=== PATIENT | male | born 1950 | race Caucasian/White ===

== ENCOUNTER → 2019-02-12 | Day surgery (SDC) | payer BC ==
[2019-02-08 13:41] LABS: BASOPHILS # (AUTO) 0.1 (0.0-0.1); BASOPHILS % 0.8 % (0.0-1.0); EOSINOPHILS # (AUTO) 0.2 (0.0-0.4); EOSINOPHILS % 2.7 % (0.0-6.0); HEMATOCRIT 43.7 % (38.2-49.6); LYMPHOCYTES # (AUTO) 1.3 (1.0-3.2); LYMPHOCYTES % 19.2 % (18.0-39.1); MEAN CORPUSCULAR HEMOGLOBIN 27.2 pg (28-32); MONOCYTES # (AUTO) 0.6 (0.2-0.8); MONOCYTES % 9.8 % (4.4-11.3); NEUTROPHILS # (AUTO) 4.4 (2.1-6.9); NEUTROPHILS % 67.2 % (38.7-80.0); PLATELET COUNT 307 x10e3/uL (140-360); RED BLOOD COUNT 5.14 x10e6/uL (4.3-5.7); RED CELL DISTRIBUTION WIDTH 14.3 % (11.7-14.4)
[~2019-02-12] MED LIST: FENTANYL CITRATE/PF 100MCG/2 ML INJ ONE; HYOSCYAMINE 0.125 MG TAB ONE; LEVOTHYROXINE PO; METOCLOPRAMIDE HCL 10 MG/2ML VIAL ONE; MIDAZOLAM HCL 2 MG/2 ML VIAL ONE; MULTIVITAMINS1 EAC7 PO; OMEPRAZOLE40 MG PO; PANTOPRAZOLE 40 MG 10ML VIAL ONE; PROPOFOL IV EMULSION 10 MG/ML 50 ML VIAL ONE
[2019-02-12 13:30] VITALS: BP 122/77
--- NOTE | 2019-02-12 15:58 | Operative Report ---
DATE OF PROCEDURE: 02/12/2019 SURGEON: Augusto Sorensen MD PROCEDURES: EGD with biopsies and esophageal dilatation and colonoscopy with polypectomy. INDICATION FOR EGD: Dysphagia. INDICATIONS FOR COLONOSCOPY: Surveillance colonoscopy, personal history of colon polyps. MEDICATIONS: The patient was done under MAC, please see anesthesiologist's note. PROCEDURE IN DETAIL: With the patient in left lateral decubitus position, flexible fiberoptic Olympus gastroscope was introduced into the esophagus under direct visualization without any difficulty. There was some patchy erythema noted in distal esophagus. Minute tongues of velvety red mucosa were noted to extend proximally from the GE junction. Biopsies were obtained to rule out Bernardo's. Esophagus was then dilated to size 52-[place] Miranda. The scope was then advanced with ease into the stomach. Mucosa overlying the antrum and the body revealed some patchy erythema and [id number] edema and biopsies were obtained and sent to stain for H pylori. The pylorus was of normal contour and shape, it was intubated with ease and the scope was advanced all the way to the second portion of the duodenum. Some duodenal folds in the proximal second portion appeared somewhat scalloped and biopsies were obtained to rule out sprue. Also, biopsies were obtained from the duodenal bulb. The scope was then withdrawn back into the stomach and retroflexed and an intact Laury fundoplication was noted. The scope was then straightened out, it was subsequently withdrawn. The patient tolerated the procedure well. IMPRESSION: 1. Distal esophagitis, mild. 2. Rule out Bernardo esophagus. 3. Esophagus dilated to size 52-[place] Miranda. 4. Status post Laury fundoplication intact. 5. Gastritis, biopsied. Biopsies sent to stain for Helicobacter pylori. 6. Rule out sprue. PLAN: Follow up histology. Initiate Protonix 40 mg one p.o. q.a.m. a.c. PROCEDURE IN DETAIL: The patient was then turned around after adequate lubrication of the anal canal, flexible fiberoptic Olympus colonoscope was inserted into the rectum with ease and advanced all the way to the cecum. Diverticular disease was noted pretty much throughout the colon. The scope was then withdrawn slowly on whatever was visualized in the mucosa overlying the cecum, ascending colon other than for diverticular disease appeared to be within normal limits. One polyp was snared from the transverse colon and polypectomy site was hemoclipped. The descending other than for diverticulosis also appeared to be within normal limits. There was segmental colitis that was mild and it was ahaustral noted in the distal sigmoid colon and that was biopsied. Two minute polyps were hot biopsied from the rectum. The scope was then retroflexed into the distal rectum. Small internal hemorrhoids were noted, none of which was actively bleeding. The scope was then straightened out, it was subsequently withdrawn. The patient tolerated the procedure well. IMPRESSION: 1. Pandiverticulosis. 2. Transverse colon polyp snared, site hemoclipped. 3. Segmental colitis, mild, sigmoid colon biopsied. 4. Rectal polyps x2, hot biopsied. 5. Internal hemorrhoids, none actively bleeding. PLAN: Followup histology. Initiate high-fiber, low-fat diet. Initiate high-fiber supplement. The patient might benefit from a followup colonoscopy in 3 to 5 years. Augusto Sorensen MD [facility] [place] /[id number] cc: Roland Allan MD
== END | disposition home or self-care (01) ==
LOC: OR 09:04
PROVIDERS: ATTEND Internal Medicine Gastroenterology
DX: K29.70 Gastritis, unspecified, without bleeding (principal); K63.5 Polyp of colon; K62.1 Rectal polyp; K50.10 Crohn's disease of large intestine without complications; K20.9 Esophagitis, unspecified; K57.30 Diverticulosis of large intestine without perforation or abscess without bleeding; K21.9 Gastro-esophageal reflux disease without esophagitis; K64.8 Other hemorrhoids; R00.1 Bradycardia, unspecified; R03.0 Elevated blood-pressure reading, without diagnosis of hypertension; Z72.89 Other problems related to lifestyle; Z01.810 Encounter for preprocedural cardiovascular examination; Z01.812 Encounter for preprocedural laboratory examination; Z68.33 Body mass index [BMI] 33.0-33.9, adult; Z98.890 Other specified postprocedural states
CPT/HCPCS: 36415; 43239; 43450; 45380; 45384; 45385; 85025; 93005; C9113; J2250; J2704; J2765; J3010; 45378